=== PATIENT | female | born 1960 | race Caucasian/White ===

== ENCOUNTER → 2018-05-20 | Outpatient (CLI) | payer OTHER | LOC: M.RAD 12:29 | DX: J40 Bronchitis, not specified as acute or chronic (principal) ==

== ENCOUNTER → 2019-01-18 | Outpatient (CLI) | payer OTHER | LOC: M.RAD 09:02 | DX: M19.011 Primary osteoarthritis, right shoulder (principal) ==

== ENCOUNTER → 2019-04-21 | Outpatient (CLI) | payer OTHER | LOC: M.MRI 09:05 | DX: Z12.31 Encounter for screening mammogram for malignant neoplasm of breast (principal); M19.011 Primary osteoarthritis, right shoulder; M25.711 Osteophyte, right shoulder ==